=== PATIENT | female | born 1965 | race Hispanic/Latino ===

== ENCOUNTER 2016-12-03 09:46 | Outpatient (CLI) | payer BC | END 2016-12-03 09:47 | disposition home or self-care (01) | LOC: PET 09:46 | PROVIDERS: ATTEND Internal Medicine Hematology & Oncology | DX: C50.211 Malignant neoplasm of upper-inner quadrant of right female breast (principal); Z79.899 Other long term (current) drug therapy | CPT/HCPCS: 82962 ==

== ENCOUNTER 2017-02-10 08:17 | Outpatient (CLI) | payer BC ==
--- NOTE | 2017-02-10 12:49 | Cat Scan Report ---
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 COMPARISON: 04/17/2015. FINDINGS: Chest, abdomen and pelvis CT performed following oral contrast and intravenous administration of 100 cc of Omnipaque 300. CHEST: Stable mild cardiomegaly. No effusions or size significant adenopathy. Unremarkable great vessels. Thyroid again not well seen. Interval bilateral mastectomies with reconstruction. Interval resolution of right breast skin thickening. Left chest port has also been removed. Right hemidiaphragm slightly elevated. Bilateral dependent atelectasis again noted. ABDOMEN: Stable cholecystectomy clips. Liver, spleen, pancreas, adrenals, aorta, IVC, kidneys and bowel again within normal limits. No ascites or size significant adenopathy. A small surgical clip lateral to the ascending colon is stable, axial image 465, series 2 as also more anteroinferior 1.9 x 0.9 cm calcified lymph node, axial image 489. Stable tiny fat containing umbilical hernia with a transverse neck of 6 mm. PELVIS: Cecum again somewhat low lying with a normal appendix extending into the right hemipelvis. Uterus again surgically absent. Few small pelvic phleboliths. Grossly stable urinary bladder and the rectosigmoid. No free fluid or significant adenopathy. Left greater than right SI joint degenerative spurring/bridging again noted as also multilevel spinal degenerative changes, including spurring and lower lumbar facet arthropathy. CONCLUSION: 1. Interval bilateral mastectomies with reconstruction, as described. No evidence of metastatic disease. 2. Various stable findings, including mild cardiomegaly, cholecystectomy and hysterectomy amongst others, as above. Thank you for the opportunity to participate in this patient's care.
--- NOTE | 2017-02-11 08:04 | Nuclear Medicine Report ---
BONE SCAN: History: Breast cancer, bone pain. Comparison is made to the bone scan dated 04/17/[address] chest abdomen and pelvis performed the same day. Findings: There is normal soft tissue and urinary uptake. There is focal uptake in the anterior mandible which is most likely secondary to history of recent dental work which was noted by the patient. Otherwise, there is no suspicious uptake throughout the axial or appendicular skeleton to suggest metastatic disease. No evidence for fracture. IMPRESSION: Negative bone scan with no evidence of metastatic disease.
== END 2017-02-10 08:18 | disposition home or self-care (01) ==
LOC: NM 08:17
PROVIDERS: ATTEND Internal Medicine Hematology & Oncology
DX: C50.211 Malignant neoplasm of upper-inner quadrant of right female breast (principal); I51.7 Cardiomegaly; J98.6 Disorders of diaphragm; J98.11 Atelectasis; K42.9 Umbilical hernia without obstruction or gangrene; I87.8 Other specified disorders of veins; M47.896 Other spondylosis, lumbar region; M12.88 Other specific arthropathies, not elsewhere classified, other specified site; M89.9 Disorder of bone, unspecified; Z90.49 Acquired absence of other specified parts of digestive tract; Z90.710 Acquired absence of both cervix and uterus; Z90.13 Acquired absence of bilateral breasts and nipples
CPT/HCPCS: 36415; 71260; 74177; 78306; 82565; 84520; A9503; Q9967